=== PATIENT | female | born 1990 | race Hispanic/Latino ===

== ENCOUNTER 2020-06-21 12:09 | Outpatient (CLI) | payer MEDICAID ==
--- NOTE | 2020-06-21 15:00 | XRay Report ---
XR foot BILAT 3+V, XR ankle BILAT 3+V INDICATION / CLINICAL INFORMATION: M12.9 PAIN. COMPARISON: None available. FINDINGS: Right foot/ankle: No acute or healing fracture is identified. There is no malalignment. Lisfranc inte rval is preserved. Ankle mortise is symmetric. No focal soft tissue abnormality. Left foot/ankle: No acute or healing fracture is identified. No malalignment. Lisfranc interval is pr eserved. Ankle mortise is symmetric. No focal soft tissue abnormality. IMPRESSION: No acute abnormality of bilateral feet or ankles. No acute or healing fracture is identified. Signer Name: Abiodun Bernal MD Signed: 06/21/2020 2:55 PM Workstation Name: [email or web address]
== END 2020-06-21 12:10 | disposition home or self-care (01) ==
LOC: XRAY 12:09
PROVIDERS: ATTEND Podiatrist Foot & Ankle Surgery
DX: M13.872 Other specified arthritis, left ankle and foot (principal); M13.871 Other specified arthritis, right ankle and foot